=== PATIENT | female | born 1950 | race Caucasian/White ===

== ENCOUNTER 2019-04-24 18:29 | Observation (INO) | payer MEDICARE, OTHER ==
[2019-04-24] VITALS (7 sets, daily range): BP systolic 121–171; BP diastolic 51–83
[~2019-04-24] VITALS: Ht 152.4 cm; Wt 65.3 kg
[2019-04-24] MEDS ORDERED: ALLOPURINOL 10100 M1 PO (18:42)
[2019-04-24] MEDS ORDERED: LIPITOR10 MG PO (18:42)
[2019-04-24] MEDS ORDERED: METFORMIN HCL500 MG PO (18:43)
[2019-04-24] MEDS ORDERED: LISINOPRIL20 MG PO (18:43)
[2019-04-24] MEDS ORDERED: GABAPENTIN 100100 MG PO (18:43)
[2019-04-24] MEDS ORDERED: MULTI VITAMIN1 EACH PO (18:43)
[2019-04-24] MEDS ORDERED: HORSE CHESTNUT300 M1 PO (18:44)
[2019-04-24] MEDS ORDERED: [UNRECOGNIZED DRUG - OTHER] (18:44)
[2019-04-24] MEDS ORDERED: ARNICA120 ML (18:44)
[2019-04-24 18:49] LABS: HEMATOCRIT 38.9 % (37.0-47.0); HEMOGLOBIN 13.1 gm/dL (12.0-15.0); MCH 29.8 pg (26.0-34.0); MCHC 33.8 g/dL (28.0-37.0); MCV 88.3 fL (80.0-100.0); MPV 8.2 fl. (7.2-11.1); NUCLEATED RBCS 0 /100WBC; PLATELET COUNT* 297 thou/uL (150-400); RDW-CV 14.3 % (10.5-14.5); WBC 13.3 thou/uL (4.0-11.0)
[2019-04-24 18:58] LABS: CALCIUM 9.5 mg/dL (8.5-10.1); CREATININE 0.9 mg/dL (0.6-1.3)
[2019-04-24 19:03] LABS: ALBUMIN 3.7 g/dL (3.4-5.0); TOTAL BILIRUBIN 0.3 mg/dL (<0.1-1.0); TOTAL PROTEIN 7.2 g/dL (6.4-8.2)
[2019-04-24 19:15] LABS: ABSOLUTE EOSINOPHILS 0.1 thou/uL (0.0-0.7); ABSOLUTE LYMPHOCYTES 6.9 thou/uL (0.8-5.3); ABSOLUTE NEUTROPHILS 6.3 thou/uL (1.6-8.1); ATYPICAL LYMPHS 8 %; PLATELET ESTIMATE ADEQUATE
[2019-04-25] VITALS (12 sets, daily range): BP systolic 138–174; BP diastolic 65–82
[2019-04-25 04:07] LABS: HEMATOCRIT 38.1 % (37.0-47.0); HEMOGLOBIN 12.5 gm/dL (12.0-15.0); MCH 29.2 pg (26.0-34.0); MCHC 32.8 g/dL (28.0-37.0); MCV 89.2 fL (80.0-100.0); MPV 8.5 fl. (7.2-11.1); RBC 4.27 mil/uL (4.20-5.00); RDW-CV 14.4 % (10.5-14.5); WBC 8.9 thou/uL (4.0-11.0)
[2019-04-25 04:29] LABS: ALBUMIN 3.4 g/dL (3.4-5.0); CALCIUM 8.4 mg/dL (8.5-10.1); CREATININE 0.8 mg/dL (0.6-1.3); MAGNESIUM 1.7 mg/dL (1.8-2.4); POTASSIUM 4.7 mmol/L (3.5-5.1); TOTAL BILIRUBIN 0.3 mg/dL (<0.1-1.0); TOTAL PROTEIN 6.9 g/dL (6.4-8.2)
--- NOTE | 2019-04-25 05:29 | NUR ---
RECIEVED PT FROM ER AT 2100H, ON ROOM AIR WITH SWOLLEN TONGUE AND LEFT KNEE BANDAGE(POST ARTHROSCOPY).NO RESPIRATORY DISTRESS NOTED AND INCREASE IN SWELLING OF THE TONGUE.CONTINUE MONITORING AND TOWRDS GOAL.
[2019-04-25] MEDS ORDERED: BENADRYL25 MG PO (09:33)
[2019-04-25] MEDS ORDERED: PREDNISONE 10 M10 MG PO (09:33)
--- NOTE | 2019-04-25 09:43 | EKG ---
[place] [address] ELECTROCARDIOGRAM REPORT Name: BAILEY MUNOZ Room: [address] ADM IN .R.#: [id number] Admission: 04/24/19 Attend Phys: Dolores Mack MD Discharge: Date of : 48 Report #: [id number] THIS REPORT FOR: //name// [facility] ED Test Date: 2019-04-24 Test Time: 19:16:59 Pat Name: BAILEY MUNOZ Department: Room: [facility] Gender: F [facility] Director: [place] : 1950 Requested By: Abbe Akins Order Number: [id number] MD: Eagle Mendoza Measurements Intervals [place] Rate: 84 P: 77 NE: 169 QRS: 70 QRSD: 111 T: -9 QT: 397 QTc: 470 Interpretive Statements Sinus arrhythmia Borderline T abnormalities, inferior leads No previous ECG available for comparison Electronically Signed On 04-25-2019 9:43:21 CDT by Eagle Mendoza [email or web address] <ELECTRONICALLY SIGNED> By: Eagle Mendoza MD, [facility] 04/25/19 0943 15 15 Eagle Mendoza MD, FAC /EPI
--- NOTE | 2019-04-25 10:41 | NUR ---
04/25: Discharge instructions discussed. All questions answered. Patient is awaiting a ride and should be here in a few minutes. Patient will be escorted out via wheelchair when ride arrives
== END 2019-04-25 10:59 | disposition home or self-care (01) ==
LOC: M.ERS 18:29 → M.ICU 19:46 → M.TBA-ER 19:46 → M.ICU 20:55
PROVIDERS: Emergency Medicine; ADMIT Internal Medicine
DX: T78.3XXA Angioneurotic edema, initial encounter (principal); T39.1X5A Adverse effect of 4-Aminophenol derivatives, initial encounter; E11.9 Type 2 diabetes mellitus without complications; I10 Essential (primary) hypertension; M10.9 Gout, unspecified; E78.5 Hyperlipidemia, unspecified; Z98.890 Other specified postprocedural states; Y92.9 Unspecified place or not applicable

== ENCOUNTER 2019-12-18 15:43 | Emergency (ER) | payer MEDICARE, OTHER ==
[~2019-12-18] VITALS: Ht 152.4 cm; Wt 65.8 kg
[~2019-12-18 15:43] MED LIST: ALLOPURINOL 10100 M1 PO; ARNICA120 ML; BENADRYL25 MG PO; GABAPENTIN 100100 MG PO; HORSE CHESTNUT300 M1 PO; LIPITOR10 MG PO; LISINOPRIL20 MG PO; METFORMIN HCL500 MG PO; MULTI VITAMIN1 EACH PO; PREDNISONE 10 M10 MG PO; [UNRECOGNIZED DRUG - OTHER]
[2019-12-18 18:45] VITALS: BP 177/97
== END 2019-12-18 18:46 | disposition home or self-care (01) ==
LOC: M.ERS 15:43
DX: S70.01XA Contusion of right hip, initial encounter (principal); S50.01XA Contusion of right elbow, initial encounter; I10 Essential (primary) hypertension; E78.5 Hyperlipidemia, unspecified; E11.9 Type 2 diabetes mellitus without complications; M10.9 Gout, unspecified; W18.39XA Other fall on same level, initial encounter; Y93.89 Activity, other specified; Y92.89 Other specified places as the place of occurrence of the external cause; Y99.8 Other external cause status

== ENCOUNTER → 2020-03-11 | Outpatient (CLI) | payer MEDICARE, OTHER | LOC: M.LAB 12:10 | PROVIDERS: ATTEND Orthopaedic Surgery | DX: Z01.812 Encounter for preprocedural laboratory examination (principal); S83.231A Complex tear of medial meniscus, current injury, right knee, initial encounter; X58.XXXA Exposure to other specified factors, initial encounter; Y93.89 Activity, other specified; Y92.89 Other specified places as the place of occurrence of the external cause; Y99.8 Other external cause status ==

== ENCOUNTER → 2020-06-21 | Outpatient (CLI) | payer MEDICARE, OTHER | LOC: M.LAB 15:10 | PROVIDERS: ATTEND Internal Medicine Gastroenterology | DX: Z01.812 Encounter for preprocedural laboratory examination (principal); R19.5 Other fecal abnormalities; Z86.010 Personal history of colon polyps; Z20.828 Contact with and (suspected) exposure to other viral communicable diseases ==